=== PATIENT | female | born 1980 | race Caucasian/White ===

== ENCOUNTER 2022-05-27 14:34 | Emergency (ER) | payer OTHER ==
[2022-05-27 16:22] LABS: ESTIMATED GFR 94 mL/min (>60)
[2022-05-27] MEDS ORDERED: Potassium Chloride 20 MEQ Tab.ER PO ONE (16:42)
[2022-05-27] MEDS ORDERED: Potassium Chloride 20 MEQ in Premix Bag 1 BAG IV ONE (16:42)
[2022-05-27] MEDS ORDERED: Sodium Chloride 0.9% 10 ML Syringe FLUSH PRN (16:42)
== END 2022-05-27 19:45 ==
LOC: JP.ED 14:34
DX: E87.6 Hypokalemia (principal); F10.920 Alcohol use, unspecified with intoxication, uncomplicated; I10 Essential (primary) hypertension; F17.210 Nicotine dependence, cigarettes, uncomplicated; Z20.822 Contact with and (suspected) exposure to COVID-19; Z79.899 Other long term (current) drug therapy; Z91.048 Other nonmedicinal substance allergy status; Z90.49 Acquired absence of other specified parts of digestive tract
CPT/HCPCS: 36415; 70450; 80053; 80305; 80307; 81001; 84132; 85025; 87635; 96365; 96366; 99285; A9270; J3480; J3490; 99284; U0002